=== PATIENT | male | born 1960 | race Two or more races ===

== ENCOUNTER 2017-02-01 13:03 | Emergency (ER) | payer MEDICAID ==
[~2017-02-01] VITALS: Ht 172.7 cm; Wt 81.6 kg
[2017-02-01 15:27] VITALS: BP 140/92
== END 2017-02-01 15:59 | disposition home or self-care (01) ==
LOC: ER 13:04
DX: S62.617A Displaced fracture of proximal phalanx of left little finger, initial encounter for closed fracture (principal); W22.8XXA Striking against or struck by other objects, initial encounter; Y93.73 Activity, racquet and hand sports; Y99.8 Other external cause status; Y92.89 Other specified places as the place of occurrence of the external cause
CPT/HCPCS: 26770; 73140